=== PATIENT | male | born 1990 | race Caucasian/White ===

== ENCOUNTER 2017-07-19 02:02 | Emergency (ER) | payer MEDICAID ==
[~2017-07-19] VITALS: Ht 188 cm; Wt 100.0 kg
[2017-07-19] MEDS ORDERED: LIDOCAINE HCL 1% 10 ML VIAL INJ ONE (04:00)
[2017-07-19 04:27] VITALS: BP 133/74
== END 2017-07-19 04:43 | disposition home or self-care (01) ==
LOC: EMS 02:06
DX: S02.2XXA Fracture of nasal bones, initial encounter for closed fracture (principal); S01.511A Laceration without foreign body of lip, initial encounter; S01.01XA Laceration without foreign body of scalp, initial encounter; Z88.0 Allergy status to penicillin; Y04.0XXA Assault by unarmed brawl or fight, initial encounter; Y93.89 Activity, other specified; Y92.89 Other specified places as the place of occurrence of the external cause; Y99.8 Other external cause status
CPT/HCPCS: 12011; 70486; 99284; J3490

== ENCOUNTER 2017-08-01 12:19 | Emergency (ER) | payer MEDICAID ==
[~2017-08-01] VITALS: Ht 188 cm; Wt 100.0 kg
[2017-08-01 13:04] VITALS: BP 113/78
== END 2017-08-01 13:10 | disposition home or self-care (01) ==
LOC: EMS 12:21
DX: S01.01XD Laceration without foreign body of scalp, subsequent encounter (principal); Z88.0 Allergy status to penicillin; F12.10 Cannabis abuse, uncomplicated; X58.XXXD Exposure to other specified factors, subsequent encounter
CPT/HCPCS: 99281

== ENCOUNTER 2019-03-21 15:41 | Emergency (ER) | payer SELFPAY ==
[~2019-03-21] VITALS: Ht 188 cm; Wt 104.5 kg
[2019-03-21 16:05] VITALS: BP 133/82
[2019-03-21] MEDS ORDERED: IBUPROFEN 400 MG TABLET PO ONE (18:45)
== END 2019-03-21 20:37 | disposition home or self-care (01) ==
LOC: EMS 15:42
DX: S96.811A Strain of other specified muscles and tendons at ankle and foot level, right foot, initial encounter (principal); F12.90 Cannabis use, unspecified, uncomplicated; Z88.0 Allergy status to penicillin; X50.1XXA Overexertion from prolonged static or awkward postures, initial encounter; Y93.02 Activity, running; Y92.89 Other specified places as the place of occurrence of the external cause; Y99.8 Other external cause status
CPT/HCPCS: 29540

== ENCOUNTER 2021-10-04 13:45 | Emergency (ER) | payer MEDICAID ==
[~2021-10-04] VITALS: Ht 182.9 cm; Wt 107.7 kg
[2021-10-04] MEDS ORDERED: HYDROCORTISONE 0.5% 30 GM CREAM TP ONE (14:30)
[2021-10-04] MEDS ORDERED: ACETAMINOPHEN 500 MG TABLET PO ONE (14:30)
[2021-10-04 15:14] VITALS: BP 132/66
== END 2021-10-04 15:23 | disposition home or self-care (01) ==
LOC: EMS 13:45
DX: K64.8 Other hemorrhoids (principal); F10.20 Alcohol dependence, uncomplicated; F12.10 Cannabis abuse, uncomplicated
CPT/HCPCS: 99282; 99283

== ENCOUNTER 2022-01-04 20:37 | Inpatient (IN) | payer MEDICAID ==
[~2022-01-04] VITALS: Ht 182.9 cm; Wt 106.3 kg
[2022-01-04 21:35] LABS: BASOPHILS % (AUTO) 0.6 % (0.0-2.0); EOSINOPHILS % (AUTO) 0.8 % (1.0-6.0); HEMATOCRIT 22.6 % (41-53); LYMPHOCYTES # (AUTO) 1.2 K/uL (1.0-4.8); LYMPHOCYTES % (AUTO) 10.3 % (22.0-44.0); MEAN CORPUSCULAR HEMOGLOBIN 18.8 pg (26.0-34.0); MEAN CORPUSCULAR HGB CONC 30.5 G/dL (31.0-37.0); MEAN CORPUSCULAR VOLUME 62 fL (80-100); MONOCYTES # (AUTO) 0.7 K/uL (0.1-1.0); MONOCYTES % (AUTO) 6.1 % (2.0-9.0); NEUTROPHILS # (AUTO) 9.4 K/uL (1.8-7.7); NEUTROPHILS % (AUTO) 82.2 % (40.0-70.0); PLATELET COUNT (AUTO) 368 K/uL (150-450); RED BLOOD CELL COUNT(AUTO) 3.66 MIL/uL (4.50-5.90); RED CELL DISTRIBUTION WIDTH 21.4 % (11.5-14.5)
[2022-01-04 21:48] LABS: HEMOGLOBIN 6.9 g/dL (13.5-17.5)
[2022-01-04 22:25] LABS: COVID AG,FIA SOURCE NASOPHARYNGEAL
[2022-01-04 22:50] LABS: ANION GAP 9 mmol/L (8-16); CALCIUM, TOTAL 8.9 mg/dL (8.8-10.5); CARBON DIOXIDE 24 mmol/L (22-29); CHLORIDE 103 mmol/L (98-107); CREATININE 1.19 mg/dL (0.60-1.30); GLUCOSE,RANDOM 102 mg/dL (70-110); POTASSIUM 3.9 mmol/L (3.5-5.1); SODIUM SERUM 136 mmol/L (136-145); UREA NITROGEN, BLOOD 16 mg/dL (7-18)
[2022-01-04 22:54] LABS: PROTHROMBIN TIME 10.9 SEC (9.4-11.6)
[2022-01-04 22:55] LABS: GLOMERULAR FILTR. RATE CALC > 60 mL/min (>60)
[2022-01-04 22:56] LABS: ALANINE AMINOTRANSFERASE 167 U/L (12-78); ALBUMIN 3.8 g/dL (3.4-5.0); ALKALINE PHOSPHATASE 82 U/L (46-116); ASPARTATE AMINOTRANSFERASE 60 U/L (15-37); BILIRUBIN,TOTAL 0.7 mg/dL (0.1-1.0); LIPASE 132 U/L (73-393); TOTAL PROTEIN, SERUM 7.7 g/dL (6.4-8.2)
[2022-01-04] MEDS ORDERED: ONDANSETRON HCL 4 MG/2 ML VIAL IVP PRN ×2 (23:00→23:30)
[2022-01-04] MEDS ORDERED: SODIUM CHLORIDE 0.9% 1,000 ML IV ONE (23:15)
[2022-01-04] MEDS ORDERED: PANTOPRAZOLE SODIUM 40 MG/VIAL IVP ONE (23:30)
[2022-01-04] MEDS ORDERED: 0.9% SODIUM CHLORIDE 10 ML SYRINGE IVP PRN (23:30)
[2022-01-04] MEDS ORDERED: ACETAMINOPHEN 325 MG TABLET PO PRN (23:30)
[2022-01-04] MEDS ORDERED: PANTOPRAZOLE SODIUM 80 MG in SODIUM CHLORIDE 0.9% 100 ML IV SCH ×4 (23:30)
[2022-01-04] MEDS ORDERED: MAGNESIUM SULFATE 2 GM, MVI, ADULT NO.1 WITH VIT K 10 ML, THIAMINE 100 MG, FOLIC ACID 1... IV ONE ×5 (23:45)
[2022-01-04] MEDS: ACETAMINOPHEN 325 MG TABLET PO PRN (23:49)
[2022-01-05] VITALS (11 sets, daily range): BP systolic 105–135; BP diastolic 51–85
[2022-01-05] MEDS: SOD FERRIC GLUC COMPLX/SUCROSE 125 MG in SODIUM CHLORIDE 0.9% 100 ML IV SCH (00:04)
[2022-01-05] MEDS: PANTOPRAZOLE SODIUM 80 MG in SODIUM CHLORIDE 0.9% 100 ML IV SCH ×4 (00:05→21:10)
[2022-01-05] MEDS ORDERED: PEG 3350/NA SULF,BICARB,CL/KCL 4000 ML SOLUTION PO ONE ×2 (03:30)
[2022-01-05 05:51] LABS: BASOPHILS % (AUTO) 0.9 % (0.0-2.0); EOSINOPHILS % (AUTO) 1.4 % (1.0-6.0); HEMATOCRIT 23.5 % (41-53); HEMOGLOBIN 7.2 g/dL (13.5-17.5); LYMPHOCYTES # (AUTO) 1.2 K/uL (1.0-4.8); LYMPHOCYTES % (AUTO) 13.7 % (22.0-44.0); MEAN CORPUSCULAR HGB CONC 30.8 G/dL (31.0-37.0); MEAN CORPUSCULAR VOLUME 65 fL (80-100); MONOCYTES # (AUTO) 0.7 K/uL (0.1-1.0); MONOCYTES % (AUTO) 7.7 % (2.0-9.0); NEUTROPHILS % (AUTO) 76.3 % (40.0-70.0); PLATELET COUNT (AUTO) 310 K/uL (150-450); RED BLOOD CELL COUNT(AUTO) 3.62 MIL/uL (4.50-5.90); RED CELL DISTRIBUTION WIDTH 24.1 % (11.5-14.5)
[2022-01-05] MEDS: MORPHINE SULFATE 2 MG/ML SYRINGE IVP PRN ×3 (06:23→20:58)
[2022-01-05] MEDS ORDERED: LORazepam 2 MG/ML VIAL IVP PRN (06:30)
[2022-01-05 08:20] LABS: ANION GAP 10 mmol/L (8-16); CALCIUM, TOTAL 8.1 mg/dL (8.8-10.5); CARBON DIOXIDE 23 mmol/L (22-29); CHLORIDE 107 mmol/L (98-107); CREATININE 1.08 mg/dL (0.60-1.30); GLUCOSE,RANDOM 107 mg/dL (70-110); POTASSIUM 3.7 mmol/L (3.5-5.1); SODIUM SERUM 140 mmol/L (136-145); UREA NITROGEN, BLOOD 9 mg/dL (7-18)
[2022-01-05 08:22] LABS: GLOMERULAR FILTR. RATE CALC > 60 mL/min (>60)
[2022-01-05] MEDS ORDERED: RINGERS SOLUTION,LACTATED 1,000 ML IV ONE (09:00)
[2022-01-05] MEDS: DOCUSATE SODIUM 100 MG CAPSULE PO SCH ×2 (09:00→21:00)
[2022-01-05] MEDS ORDERED: PNEUMOCOCCAL VACCINE POLYVALENT 0.5 ML VIAL [PPSV23] IM. ONE (09:15)
[2022-01-05] MEDS: HYDROCORTISONE 2.5% 30 GM CREAM TP SCH (20:58)
[2022-01-05] MEDS: CIPROFLOXACIN HCL 0.2%/HYDROCORT 1% 10 ML OTIC SUSPENSION AD SCH (22:23)
[2022-01-05] MEDS: ACETAMINOPHEN 325 MG TABLET PO PRN (22:32)
[2022-01-06] MEDS: SOD FERRIC GLUC COMPLX/SUCROSE 125 MG in SODIUM CHLORIDE 0.9% 100 ML IV SCH (00:04)
[2022-01-06] MEDS: MORPHINE SULFATE 2 MG/ML SYRINGE IVP PRN ×3 (00:39→10:28)
[2022-01-06 04:00] VITALS: BP 127/66
[2022-01-06] MEDS: PANTOPRAZOLE SODIUM 80 MG in SODIUM CHLORIDE 0.9% 100 ML IV SCH (05:10)
[2022-01-06] MEDS ORDERED: LIDOCAINE/PF 2% 5 ML VIAL IM ONE (06:51)
[2022-01-06] MEDS ORDERED: PROPOFOL 1% 20 ML VIAL IVP ONE (06:51)
[2022-01-06 07:52] VITALS: BP 111/55
[2022-01-06] MEDS: CIPROFLOXACIN HCL 0.2%/HYDROCORT 1% 10 ML OTIC SUSPENSION AD SCH (09:05)
[2022-01-06] MEDS: DOCUSATE SODIUM 100 MG CAPSULE PO SCH (09:05)
[2022-01-06] MEDS: HYDROCORTISONE 2.5% 30 GM CREAM TP SCH (10:34)
[2022-01-06 11:16] VITALS: BP 104/58
[2022-01-06] MEDS ORDERED: MULTIVITAMINS WITH MINERALS, THERAPEUTIC TABLET PO SCH (11:30)
[2022-01-06 11:40] LABS: BASOPHILS % (AUTO) 0.6 % (0.0-2.0); EOSINOPHILS % (AUTO) 1.8 % (1.0-6.0); HEMATOCRIT 25.1 % (41-53); HEMOGLOBIN 7.7 g/dL (13.5-17.5); LYMPHOCYTES # (AUTO) 1.7 K/uL (1.0-4.8); LYMPHOCYTES % (AUTO) 13.1 % (22.0-44.0); MEAN CORPUSCULAR HEMOGLOBIN 19.4 pg (26.0-34.0); MEAN CORPUSCULAR HGB CONC 30.5 G/dL (31.0-37.0); MEAN CORPUSCULAR VOLUME 64 fL (80-100); MONOCYTES # (AUTO) 1.2 K/uL (0.1-1.0); MONOCYTES % (AUTO) 9.3 % (2.0-9.0); NEUTROPHILS # (AUTO) 9.5 K/uL (1.8-7.7); NEUTROPHILS % (AUTO) 75.2 % (40.0-70.0); PLATELET COUNT (AUTO) 356 K/uL (150-450); RED BLOOD CELL COUNT(AUTO) 3.94 MIL/uL (4.50-5.90); RED CELL DISTRIBUTION WIDTH 24.4 % (11.5-14.5)
[2022-01-06] MEDS ORDERED: PANTOPRAZOLE SODIUM 40 MG DR TABLET PO SCH (21:00)
[2022-01-10 12:21] LABS: PATHOLOGY REVIEW, DIFF YES
== END 2022-01-06 14:45 | disposition home or self-care (01) | DRG 241 ==
LOC: EMS 20:50 → 5S 01-05 02:00
PROVIDERS: ADMIT Internal Medicine; ATTEND Internal Medicine
PROC: 0DJD8ZZ Inspection of Lower Intestinal Tract, Via Natural or Artificial Opening Endoscopic (ICD-10-PCS; 2022-01-05)
PROC: 0DB68ZX Excision of Stomach, Via Natural or Artificial Opening Endoscopic, Diagnostic (ICD-10-PCS; principal; 2022-01-05 17:30)
DX: K29.71 Gastritis, unspecified, with bleeding (principal); D62 Acute posthemorrhagic anemia; E66.9 Obesity, unspecified; F10.10 Alcohol abuse, uncomplicated; F10.139 Alcohol abuse with withdrawal, unspecified; K64.1 Second degree hemorrhoids; Z20.822 Contact with and (suspected) exposure to COVID-19; Z88.0 Allergy status to penicillin; Y90.9 Presence of alcohol in blood, level not specified; Z68.31 Body mass index [BMI] 31.0-31.9, adult
CPT/HCPCS: 80048; 80053; 82271; 83690; 85025; 85610; 85730; 86850; 86900; 86901; 86923; 87081; 99291; C9113; G0480; J2270; J2704; J2916; J3411; J3475; J3490; J7030; J7050; J7120; P9016

== ENCOUNTER 2022-05-16 20:52 | Emergency (ER) | payer MEDICAID ==
[~2022-05-16] VITALS: Ht 188 cm; Wt 109.1 kg
[2022-05-16 21:31] LABS: COVID AG,FIA SOURCE NASAL SWAB
[2022-05-16 23:34] LABS: BASOPHILS % (AUTO) 1.2 % (0.0-2.0); EOSINOPHILS % (AUTO) 3.1 % (1.0-6.0); HEMATOCRIT 26.1 % (41-53); HEMOGLOBIN 7.2 g/dL (13.5-17.5); LYMPHOCYTES # (AUTO) 2.4 K/uL (1.0-4.8); LYMPHOCYTES % (AUTO) 33.2 % (22.0-44.0); MEAN CORPUSCULAR HEMOGLOBIN 16.8 pg (26.0-34.0); MEAN CORPUSCULAR HGB CONC 27.7 G/dL (31.0-37.0); MEAN CORPUSCULAR VOLUME 61 fL (80-100); MONOCYTES # (AUTO) 0.5 K/uL (0.1-1.0); MONOCYTES % (AUTO) 6.4 % (2.0-9.0); NEUTROPHILS % (AUTO) 56.1 % (40.0-70.0); PLATELET COUNT (AUTO) 362 K/uL (150-450); RED BLOOD CELL COUNT(AUTO) 4.31 MIL/uL (4.50-5.90); RED CELL DISTRIBUTION WIDTH 19.9 % (11.5-14.5)
[2022-05-16 23:40] LABS: ANION GAP 11 mmol/L (8-16); CALCIUM, TOTAL 8.3 mg/dL (8.8-10.5); CARBON DIOXIDE 24 mmol/L (22-29); CHLORIDE 104 mmol/L (98-107); CREATININE 0.92 mg/dL (0.60-1.30); GLUCOSE,RANDOM 120 mg/dL (70-110); POTASSIUM 3.7 mmol/L (3.5-5.1); SODIUM SERUM 139 mmol/L (136-145); UREA NITROGEN, BLOOD 5 mg/dL (7-18)
[2022-05-16 23:42] LABS: GLOMERULAR FILTR. RATE CALC > 60 mL/min (>60)
[2022-05-16] MEDS ORDERED: LIDOCAINE 5% TRANSDERMAL PATCH TD ONE (23:45)
[2022-05-16] MEDS ORDERED: ACETAMINOPHEN 500 MG TABLET PO ONE (23:45)
[2022-05-16 23:54] LABS: B-TYPE NATRIURETIC PEPTIDE 23 pg/mL (0-100)
[2022-05-17 00:06] LABS: ALANINE AMINOTRANSFERASE 112 U/L (12-78); ALBUMIN 3.5 g/dL (3.4-5.0); ALKALINE PHOSPHATASE 92 U/L (46-116); ASPARTATE AMINOTRANSFERASE 93 U/L (15-37); BILIRUBIN,TOTAL 0.3 mg/dL (0.1-1.0); CREATINE KINASE, TOTAL ONLY 104 U/L (39-308); TOTAL PROTEIN, SERUM 7.7 g/dL (6.4-8.2)
[2022-05-17 00:07] LABS: INFLUENZA TYPE A NEGATIVE FOR TYPE A (NEGATIVE); INFLUENZA TYPE B NEGATIVE FOR TYPE B (NEGATIVE)
[2022-05-17] MEDS ORDERED: BENZONATATE 100 MG CAPSULE PO ONE (01:00)
[2022-05-17] MEDS ORDERED: BENZ-70 PO (02:04)
[2022-05-17 02:22] VITALS: BP 155/80
[2022-05-17 07:00] LABS: PATHOLOGY REVIEW, DIFF YES
[2022-05-19] MEDS ORDERED: FERR325T27 PO (01:08)
[2022-05-19] MEDS ORDERED: POLY238P PO (01:08)
[2022-05-19] MEDS ORDERED: GUAIFDM PO (01:08)
[2022-05-19] MEDS ORDERED: HYDR-4723 PO (01:08)
== END 2022-05-17 02:24 | disposition home or self-care (01) ==
LOC: EMS 21:43
DX: D64.9 Anemia, unspecified (principal); R07.81 Pleurodynia; R05.9 Cough, unspecified; F12.90 Cannabis use, unspecified, uncomplicated; Z20.822 Contact with and (suspected) exposure to COVID-19; Z88.0 Allergy status to penicillin
CPT/HCPCS: 99285; 71045; 87426; 80053; 82550; 83880; 84484; 85025; 85379; 87804; 36415; 93005; C9803

== ENCOUNTER 2022-10-26 06:55 | Emergency (ER) | payer MEDICAID ==
[~2022-10-26] VITALS: Ht 188 cm; Wt 111.4 kg
[~2022-10-26 06:55] MED LIST: FERR325T27 PO; GUAIFDM PO; HYDR-4723 PO; POLY238P PO
[2022-10-26 06:57] VITALS: BP 127/82
[2022-10-26] MEDS ORDERED: KETOROLAC TROMETHAMINE 60 MG/2 ML VIAL IM ONE (07:15)
[2022-10-26] MEDS ORDERED: IBUP-1492 PO (08:11)
[2022-10-26] MEDS ORDERED: PERCT PO (08:12)
== END 2022-10-26 08:18 | disposition home or self-care (01) ==
LOC: EMS 06:56
DX: R07.81 Pleurodynia (principal); K64.9 Unspecified hemorrhoids; F12.90 Cannabis use, unspecified, uncomplicated; Z88.0 Allergy status to penicillin
CPT/HCPCS: 99283; 71045; 96372; J1885